=== PATIENT | male | born 1950 | race American Indian/Alaskan Native ===

== ENCOUNTER 2018-10-15 10:32 | Inpatient (IN) | payer MEDICARE ==
[2018-10-15] MEDS ORDERED: TYLENOL PO ONE (11:02)
[2018-10-15] MEDS ORDERED: TYLENOL ONE (11:04)
--- NOTE | 2018-10-15 11:05 | Event Note ---
ED Screening Note Date of service: 10/15/18 Time: 11:03 ED Screening Note: 68 y/o male with no pmh comes for left foot pain times 10 days. This initial assessment/diagnostic orders/clinical plan/treatment(s) is/are subject to change based on patients health status, clinical progression and re- assessment by fellow clinical providers in the ED. Further treatment and workup at subsequent clinical providers discretion. Patient/guardian urged not to elope from the ED as their condition may be serious if not clinically assessed and managed. Initial orders include:
--- NOTE | 2018-10-15 12:05 | Vascular Lab Report ---
DUPLEX DOPPLER LOWER EXTREMITY VEINS, LEFT INDICATION: Left foot pain for 10 days. No pedal pulses TECHNIQUE: Duplex doppler imaging was performed through the veins of the left lower extremity using venous compression and other maneuvers. COMPARISON: No relevant prior imaging study available. FINDINGS: Left Common femoral vein: Negative. Left Superficial femoral vein: Negative. Left Popliteal vein: Negative. Left Calf veins: Negative. Additional findings: None.. IMPRESSION: No sonographic evidence for DVT in the left lower extremity. Signer Name: Alfred Pearl Jr, MD Signed: 10/15/2018 12:00 PM Workstation Name: [id number]
--- NOTE | 2018-10-15 12:46 | Vascular Lab Report ---
DUPLEX DOPPLER LOWER EXTREMITY ARTERIAL, BILATERAL INDICATION: pain and no pedial pulse. Left TECHNIQUE: Arterial duplex examination of the left lower performed using B-mode, color flow and spectral Doppler assessment. FINDINGS: LEFT: Common Femoral Artery: PSV 164 cm/sec. Triphasic waveform. Proximal SFA: PSV 148 cm/sec. Triphasic waveform. Mid SFA: PSV 133 cm/sec. Triphasic waveform. Distal SFA: PSV 99 cm/sec. Triphasic waveform. Popliteal artery: PSV 89 cm/sec. Triphasic waveform. Posterior tibial artery: PSV 67 cm/sec. Triphasic waveform is identified in the proximal posterior t ibial artery which converts to a monophasic waveform in the mid and distal posterior tibial artery. Anterior tibial artery: PSV 34 cm/s. Monophasic waveform. Dorsalis Pedis Artery: PSV 19 cm/sec. Monophasic waveform. Moderate calcific plaque is noted in the left popliteal artery, posterior tibial artery and anterior tibial artery. IMPRESSION: Mild to moderate atherosclerotic disease distal to the knee as described. Doppler Waveform: * Triphasic is normal. * Biphasic is abnormal if clear transition from triphasic signal along vascular tree. * Monophasic is abnormal. Signer Name: Alfred Pearl Jr, MD Signed: 10/15/2018 12:41 PM Workstation Name: [id number]
--- NOTE | 2018-10-15 13:17 | Emergency Department Report ---
ED Lower Extremity HPI - General Chief Complaint: Extremity Injury, Lower Stated Complaint: LFT FOOT PAIN Time Seen by Provider: 10/15/18 13:05 Source: patient Mode of arrival: Ambulatory Limitations: No Limitations - History of Present Illness Initial Comments: Mr. Willis is a 68-year-old male who presents with severe left foot pain for the past 1-2 weeks. He has an ulcer on his left big toe. Pain is exquisitely tender. No recent travel. No history of tobacco abuse. Does not have a primary care physician. Gradual onset of symptoms. Painful to touch. No injury. MD Complaint: other (left foot pain) -: Gradual, week(s) (1-2) Injury: Foot: Left Severity: severe - Related Data Allergies Allergy/AdvReac Type Severity Reaction Status Date / Time No Known Allergies Allergy Unverified 10/15/18 10:33 ED Review of Systems ROS: Stated complaint: LFT FOOT PAIN Other details as noted in HPI Comment: All other systems reviewed and negative Constitutional: denies: fever, malaise Cardiovascular: denies: chest pain Gastrointestinal: denies: abdominal pain ED Past Medical Hx - Past Medical History Previous Medical History?: No - Surgical History Past Surgical History?: No - Social History Smoking Status: Never Smoker Substance Use Type: None ED Physical Exam - General Limitations: No Limitations General appearance: alert, in no apparent distress - Head Head exam: Present: atraumatic, normocephalic - Eye Eye exam: Present: normal appearance - ENT ENT exam: Present: mucous membranes moist - Neck Neck exam: Present: normal inspection, full ROM - Respiratory Respiratory exam: Present: normal lung sounds bilaterally. Absent: respiratory distress, wheezes, rales, rhonchi - Cardiovascular Cardiovascular Exam: Present: regular rate, normal rhythm, normal heart sounds. Absent: systolic murmur, diastolic murmur, rubs, gallop - GI/Abdominal GI/Abdominal exam: Present: soft, normal bowel sounds. Absent: distended, tenderness, guarding, rebound - Rectal Rectal exam: Present: deferred - Extremities Exam Extremities exam: Present: other (unable to palpate pedal pulse left foot, darkened in color 2 cm ulcer medal left toe, lower extremity from calf to foot) - Back Exam Back exam: Present: normal inspection - Neurological Exam Neurological exam: Present: alert, oriented X3 - Psychiatric Psychiatric exam: Present: normal affect, normal mood - Skin Skin exam: Present: warm ED Course Vital Signs 10/15/18 10/15/18 10:53 13:10 Temperature 98.1 F 99.5 F Pulse Rate 101 H 110 H Respiratory 24 14 Rate Blood Pressure 113/86 Blood Pressure 150/88 [Left] O2 Sat by Pulse 99 100 Oximetry ED Lower Extremity MDM - Lab Data Result diagrams: 10/15/18 13:23 10/15/18 13:23 - EKG Data 10/15/18 14:06 EKG obtained 1402 Normal sinus rhythm rate 75 beats a minute normal axis normal intervals positive LVH and nonspecific T-wave abnormality. No significant ST elevation - Radiology Data Radiology results: report reviewed PAD, no DVT - Medical Decision Making Peripheral vascular disease noted with diminished pedal pulses unable to palpate pedal pulse., Duplex Doppler arterial study of the lower extremity showed mild/moderate atherosclerotic disease distal to the left knee, venous duplex negative for DVT. Differential diagnoses includes cellulitis with superinfection with left toe ulcer, will await further evaluation by medicine service before initiating antibiotics I highly appreciate the prompt evaluation and consultation by vascular surgeon Dr. Shipman. He is concerned for pain at rest and subacute limb ischemia. He will take patient to angiography for further evaluation and management. Dr. Sheehan hospitalist agreed to admit the patient. I have reviewed labs which are notable for decreased GFR and leukocytosis. Critical care attestation.: If time is entered above; I have spent that time in minutes in the direct care of this critically ill patient, excluding procedure time. ED Disposition Clinical Impression: Peripheral arterial occlusive disease, CKD (chronic kidney disease) Disposition: OP ADMIT IP TO THIS HOSP Is pt being admited?: Yes Does the pt Need Aspirin: No Condition: Stable
[2018-10-15 13:41] LABS: Basophils # (Auto) 0.1 K/mm3 (0.0-0.1); Basophils % (Auto) 0.5 % (0.0-1.8); Eosinophils % (Auto) 0.1 % (0.0-4.3); Hematocrit 31.7 % (35.5-45.6); Lymphocytes % (Auto) 6.8 % (13.4-35.0); Mean Corpuscular HGB Conc 35 % (32-34); Mean Corpuscular Volume 91 fl (84-94); Monocytes # (Auto) 1.2 K/mm3 (0.0-0.8); Monocytes % (Auto) 8.3 % (0.0-7.3); Platelet Count 335 K/mm3 (140-440); Red Cell Distribution Width 13.4 % (13.2-15.2)
[2018-10-15 13:54] LABS: INR 1.14 (0.87-1.13)
[2018-10-15 13:55] LABS: Partial Thromboplastin Time 29.9 Sec. (24.2-36.6)
[2018-10-15 14:00] LABS: Calcium 9.4 mg/dL (8.4-10.2)
[2018-10-15] MEDS ORDERED: MAXIPIME/NS 1 GM/100 ML 1 GM/100 ML BAG IV ONE (14:34)
[2018-10-15] MEDS ORDERED: VANCOMYCIN/NS 1 GM/250 ML 1 GM/250 ML BAG IV ONE (14:34)
--- NOTE | 2018-10-15 14:38 | Consultation ---
History of Present Illness - Reason for Consult Consult date: 10/15/18 LLE pain - History of Present Illness Mr. Willis is a 68-year-old male who presents with severe left foot pain for the past 1-2 weeks. He has an ulcer on his left big toe. Pain is exquisitely tender. No recent travel. No history of tobacco abuse. Does not have a primary care physician. Gradual onset of symptoms. Painful to touch. No injury. Vascular consulted for abnormal arterial duplex. Triphasic flow to the popliteal with monophasic flow below this area. Patient has pain from the mid calf down to the toe which started about 10 days ago and is associated with an ulcer of the 1st toe. The pain is severe, but is basically stable. The ulcer has slowly worsened. Left motor function and sensory function intact. Pain in the calf improves with hanging foot of the bed, but the foot pain worsens. Past History Past Medical History: No medical history (has not seen a doctor in a long time) Past Surgical History: No surgical history (has not seen a doctor in a long time) Social history: no significant social history Family history: no significant family history Medications and Allergies Allergies Allergy/AdvReac Type Severity Reaction Status Date / Time No Known Allergies Allergy Unverified 10/15/18 10:33 Active Meds: Active Medications Heparin Sodium/Sodium Chloride (Heparin/ 0.45% Nacl-25,000 Unit/500 Ml) 25,000 unit in 500 mls @ 30 mls/hr IV TITR JESUS MANUEL; Protocol Sodium Chloride (Nacl 0.9% 1000 Ml) 1,000 mls @ 125 mls/hr IV DIRECT JESUS MANUEL Cefepime HCl (Maxipime/Ns 1 Gm/100 Ml) 1 gm in 100 mls @ 200 mls/hr IV ONCE ONE; Protocol Stop: 10/15/18 15:03 Vancomycin HCl (Vancomycin/Ns 1 Gm/250 Ml) 1 gm in 250 mls @ 167.007 mls/hr IV ONCE ONE; Protocol Stop: 10/15/18 16:03 Review of Systems All systems: negative (see HPI) Exam - Constitutional Vitals: Temp Pulse Resp BP Pulse Ox 99.5 F 110 H 14 150/88 100 10/15/18 13:10 10/15/18 13:10 10/15/18 13:10 10/15/18 13:10 10/15/18 13:10 General appearance: Present: mild distress (LLE pain) - EENT Eyes: Present: EOM intact ENT: hearing intact - Respiratory Respiratory effort: normal - Extremities Extremities: normal temperature, normal color, abnormal (RLE PT intact, LLE nonpalpable pulses ; LLE edematous and painful to touch from the midcalf down. U lceration of the 1st digit with necrotic center.) - Abdominal General gastrointestinal: Present: soft - Psychiatric Psychiatric: appropriate mood/affect, cooperative Results - Labs CBC & Chem 7: 10/15/18 13:23 10/15/18 13:23 Labs: Abnormal lab results 10/15/18 10/15/18 10/15/18 Range/Units 13:23 13:23 13:27 WBC 14.5 H (4.5-11.0) K/mm3 RBC 3.50 L (3.65-5.03) M/mm3 Hgb 11.0 L (11.8-15.2) gm/dl Hct 31.7 L (35.5-45.6) % MCHC 35 H (32-34) % Lymph % (Auto) 6.8 L (13.4-35.0) % [place] % (Auto) 8.3 H (0.0-7.3) % Lymph # 1.0 L (1.2-5.4) K/mm3 [place] # 1.2 H (0.0-0.8) K/mm3 Seg Neutrophils % 84.3 H (40.0-70.0) % Seg Neutrophils # 12.3 H (1.8-7.7) K/mm3 INR 1.14 H (0.87-1.13) BUN 38 H (9-20) mg/dL Creatinine 1.8 H (0.8-1.5) mg/dL - Imaging and Cardiology Venous US: report reviewed, image reviewed Assessment and Plan 68 year old male who presents with severe left leg pain, intact motor and sensory function, and 1st digit ulceration with necrotic center with nonpalpable pulses and monophasic flow below the popliteal artery. Equivocal rest pain due t o improvement in the calf pain but worsening foot pain. There appears to be some component of rest pain with underling PVD. Creatinine came back elevated at 1.8. Given that the findings have been relatively stable for 10 days, I recommend IV hydration with angiography and revascularization afterwards. 1st toe ulceration/eschar appears dry, but the foot and calf are very tender and may have a component of infection. Recommend broad spectrum antibiotics, and x rays to exclude gas. May need MRI performed with gadolinium to exclude foot/calf abscess. Recommend ID consult and wound care consult with surgical consult for debridement. Debridement should occur after revascularization. Revascularization will occur after creatinine improves or does not change after IV hydration (baseline CKD).
[2018-10-15 14:39] LABS: INR 1.16 (0.87-1.13)
[2018-10-15 14:40] LABS: Partial Thromboplastin Time 33.1 Sec. (24.2-36.6)
[2018-10-15 14:44] LABS: Hematocrit 31.8 % (35.5-45.6); Hemoglobin 10.4 gm/dl (11.8-15.2)
[2018-10-15] MEDS ORDERED: NACL 0.9% 1000 ML 1,000 ML IV SCH (15:00)
--- NOTE | 2018-10-15 15:35 | XRay Report ---
Left tibia and fibula, 2 views INDICATION: cellulitis. COMPARISON: None. IMPRESSION: No acute osseous or soft tissue abnormality. No significant DJD. Left ankle, 3 views INDICATION: cellulitis. COMPARISON: None. IMPRESSION: No osseous abnormality is identified. No significant DJD. There is mild diffuse soft ti ssue swelling. No soft tissue gas. Left foot, 3 views INDICATION: cellulitis. COMPARISON: None. IMPRESSION: No acute osseous or soft tissue abnormality. No significant DJD. Signer Name: Alfred Pearl Jr, MD Signed: 10/15/2018 3:30 PM Workstation Name: [id number]
[2018-10-15] MEDS ORDERED: VANCOMYCIN 2,000 MG in NACL 0.9% 500 ML 500 ML IV ONE (15:50)
[2018-10-15] MEDS: HEPARIN/ 0.45% NACL-25,000 UNIT/500 ML 25,000 UNIT/500 ML BAG IV SCH (18:12)
[2018-10-15] MEDS ORDERED: ZOFRAN IV PRN (21:46)
[2018-10-15] MEDS ORDERED: TYLENOL PO PRN (21:46)
[2018-10-15] MEDS ORDERED: SODIUM CHLORIDE FLUSH SYRINGE 10 ML IV PRN (21:46)
[2018-10-15] MEDS ORDERED: VANCOMYCIN PHARMACY TO DOSE IV SCH (22:00)
[2018-10-15] MEDS: PEPCID PO SCH (22:37)
[2018-10-15] MEDS: SODIUM CHLORIDE FLUSH SYRINGE 10 ML IV SCH (22:40)
[2018-10-16] MEDS ORDERED: APRESOLINE IV PRN ×2 (00:38→09:00)
[2018-10-16] MEDS: UNASYN/NS 3 GM/100 ML 3 GM/100 ML BAG IV SCH ×4 (02:20→23:32)
[2018-10-16 03:44] LABS: Basophils # (Auto) 0.1 K/mm3 (0.0-0.1); Basophils % (Auto) 0.8 % (0.0-1.8); Eosinophils % (Auto) 0.2 % (0.0-4.3); Hematocrit 31.4 % (35.5-45.6); Hemoglobin 10.4 gm/dl (11.8-15.2); Lymphocytes # (Auto) 1.5 K/mm3 (1.2-5.4); Lymphocytes % (Auto) 13.2 % (13.4-35.0); Mean Corpuscular HGB Conc 33 % (32-34); Mean Corpuscular Volume 90 fl (84-94); Monocytes % (Auto) 9.1 % (0.0-7.3); Platelet Count 332 K/mm3 (140-440); Red Blood Count 3.49 M/mm3 (3.65-5.03); Red Cell Distribution Width 13.7 % (13.2-15.2)
[2018-10-16 04:14] LABS: Alanine Aminotransferase 16 units/L (7-56); Albumin 3.4 g/dL (3.9-5); BUN/Creatinine Ratio 22; Blood Urea Nitrogen 31 mg/dL (9-20); Calcium 8.8 mg/dL (8.4-10.2); Hemolysis Index 5
--- NOTE | 2018-10-16 06:24 | Event Note ---
Date: 10/15/18 See H/p in reports PAD LLE cellulitis HTN
[2018-10-16] MEDS: DILAUDID IV PRN ×2 (06:33→19:11)
--- NOTE | 2018-10-16 06:58 | History and Physical Report ---
CHIEF COMPLAINT: Left foot pain and discoloration for the past 1-2 weeks. HISTORY OF PRESENT ILLNESS: A 68-year-old male with no significant past medical history, comes in for severe left foot pain and discoloration of the left lower extremity from mid calf region to the foot for the past 2 weeks. Extremely painful. Painful at rest also. Painful to touch. No fever or chills. The patient also has an ulcer on the left big toe, which is very tender. No drainage. PAST MEDICAL HISTORY: None. SOCIAL HISTORY: Smoked about 40 years ago. PAST SURGICAL HISTORY: None. FAMILY HISTORY: Hypertension. REVIEW OF SYSTEMS: Significant for left leg pain even on minimal walking and at rest. Also, left great toe ulcer. Pain is about 10 on a scale of 1-10. Otherwise, review of systems negative. PHYSICAL EXAMINATION: GENERAL: Elderly male, cooperative during examination. VITAL SIGNS: Blood pressure is 175/90, 188/92, 193/92. Pulse is 101, temperature is 98.1, respirations are 24, sats are 99%. HEENT: Unremarkable. Pupils equal and reactive. NECK: Supple, no lymphadenopathy, no thyromegaly. LUNGS: Clear to auscultation and percussion. Good air entry. CARDIOVASCULAR: S1, S2 heard. No gallop, no murmur, no rub. Apical impulse in left fifth intercostal space and midclavicular line. ABDOMEN: Soft and benign. No hepatosplenomegaly. No guarding, no rigidity. Hernial orifices are normal. EXTREMITIES: Left lower extremity discoloration present from mid calf to the foot. Peripheral pulses are poorly felt. Ulcer on the left toe 1 cm x 2 cm with a depth of 0.5 cm. No drainage. Warm to touch. Pain is tender to touch. CENTRAL NERVOUS SYSTEM: Normal. LABORATORY DATA: Significant for white count of 14,500, H and H is 10.4 and 31.8, platelet count is 350,000. INR is 1.16, BUN and creatinine is 38 and 1.8. A1c is 5.5, albumin is 3.4. Venous duplex scan shows no evidence for DVT in the left lower extremity. Arterial duplex scan left lower extremity shows mild to moderate atherosclerotic disease distal to the knee, monophasic waveforms in anterior tibial artery and dorsalis pedis artery. Also, monophasic waveform in the mid and distal posterior tibial artery. DIAGNOSTIC DATA: EKG shows normal sinus rhythm, heart rate of 78 per minute, LVH criteria present. Tib-fib x-ray was normal. ASSESSMENT AND PLAN: 1. Left lower extremity cellulitis. The patient initiated on IV Unasyn and IV vancomycin. 2. Severe peripheral arterial disease and left lower extremity. The patient initiated on heparin drip. Dr. Shipman, IR consulted. 3. Hypertension. The patient initiated on antihypertensives. The patient does not have a history of hypertension before. 4. Acute kidney injury. IV fluids for now. 5. Malnutrition, mild. Dietary supplements 6. Anemia. Anemia workup. 7. Systemic inflammatory response syndrome in view of high white count of 14,500 and left lower extremity cellulitis. 8. Deep venous thrombosis prophylaxis. The patient is already on heparin drip and gastrointestinal prophylaxis initiated. In summary, the patient has severe peripheral arterial disease with left toe ulcer, acute kidney injury, uncontrolled hypertension. JOB# [id number] ADRIANA/CINTHYA [place]
[2018-10-16 07:35] LABS: % Iron Saturation 23.12 %
--- NOTE | 2018-10-16 08:28 | Progress Note ---
Assessment and Plan Assessment and plan: Patient is a 68-year-old male with past medical history of hypertension [not treated] who presents to the hospital complaining of severe left foot pain with discoloration has been ongoing for 2 weeks around the left hallux and painful to touch. Patient did not demonstrate any fever at home. Imaging studies including Foot, Tibia and ankle xray reveal No acute osseous or soft tissue abnormality. Patient also has a Duplex scan of the lower extremity artery revealed abnormal arterial duplex. Triphasic flow to the popliteal and monophasic flow below this area. Vascular was consulted to assist with management of the patient due to severe PAD while patient was started on empiric anticoagulation drip with heparin. Patient did have a remote tobacco history but quit 40 years ago and has not been to Dr. last 15+ years Left Foot MRI. R/O OSTEOM LLE nonpalpable pulses ; LLE edematous and painful to touch from the midcalf down. Ulceration of the 1st digit with necrotic center.) LLE ATRIAL DUPLEX IMPRESSION: Mild to moderate atherosclerotic disease distal to the knee as described. XRAY LEFT FOOT: IMPRESSION: No acute osseous or soft tissue abnormality. No significant DJD. 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 PARAMNESIA LEFT FOOT SECONDARY TO SEVERE PVD Plan: Continue supportive care ID, Gen Surgery, nephrology and vascular consult noted No clear evidence of systemic infection Continue heparin drip Revascularization planned for today MRI foot pending Renfuction improved with hydration Counselling on BP management discussed in detail for over 15mins, patient verbalized understanding and risk of non complaint. will look for $4 list meds if any on discharge. Wound care consult noted. History Interval history: Patient seen and examined this morning in no acute distress reports some improvement in symptoms. But the patient has had long-standing hypertension but has not followed up with any doctor for medications due to lack of shortness. This morning still with some pain to the left large toe but much improved compared to admission now rates a 3/10 in intensity. Hospitalist Physical - Physical exam Narrative exam: VITAL SIGNS: Reviewed. GENERAL: The patient appears normally developed, Vital signs as documented. HEAD: No signs of head trauma. EYES: Pupils are equal. Extraocular motions intact. EARS: Hearing grossly intact. MOUTH: Oropharynx is normal. NECK: No adenopathy, no JVD. CHEST: Chest with clear breath sounds bilaterally. No wheezes, rales, or rhonchi. CARDIAC: Regular rate and rhythm. S1 and S2, without murmurs, gallops, or rubs. VASCULAR: No Edema. Peripheral pulses normal on the right, LLE WITH LLE n onpalpable pulses ; LLE edematous and painful to touch from the midcalf down. Ulceration of the 1st digit with necrotic center. ABDOMEN: Soft, non tender and non distended. No rebound or guarding, and no masses palpated. Bowel Sounds normal. MUSCULOSKELETAL: Good range of motion of all major joints expected as noted. Extremities without clubbing, cyanosis or edema.LL EX edematous and painful to touch from the midcalf down. Ulceration of the 1st digit with necrotic center NEUROLOGIC EXAM: Alert and oriented x 3 No focal sensory or strength deficits. Speech normal. Follows commands. PSYCHIATRIC: Mood normal. SKIN: Left Large hallux lateral aspect of fluid with ulceration. Warm to touch. Mild erythema. Detail exam as documented in skin assessment - Constitutional Vitals: Temp Pulse Resp BP Pulse Ox 98.7 F 73 18 170/90 98 10/15/18 21:56 10/16/18 02:20 10/15/18 21:56 10/16/18 04:00 10/15/18 21:56 General appearance: Present: mild distress (LLE pain) Results - Labs CBC & Chem 7: 10/16/18 03:31 10/16/18 03:31 Labs: Laboratory Last Values WBC 11.2 K/mm3 (4.5-11.0) H 10/16/18 03:31 RBC 3.49 M/mm3 (3.65-5.03) L 10/16/18 03:31 Hgb 10.4 gm/dl (11.8-15.2) L 10/16/18 03:31 Hct 31.4 % (35.5-45.6) L 10/16/18 03:31 MCV 90 fl (84-94) 10/16/18 03:31 MCH 30 pg (28-32) 10/16/18 03:31 MCHC 33 % (32-34) 10/16/18 03:31 RDW 13.7 % (13.2-15.2) 10/16/18 03:31 Plt Count 332 K/mm3 (140-440) 10/16/18 03:31 Lymph % (Auto) 13.2 % (13.4-35.0) L 10/16/18 03:31 [place] % (Auto) 9.1 % (0.0-7.3) H 10/16/18 03:31 Eos % (Auto) 0.2 % (0.0-4.3) 10/16/18 03:31 Baso % (Auto) 0.8 % (0.0-1.8) 10/16/18 03:31 Lymph # 1.5 K/mm3 (1.2-5.4) 10/16/18 03:31 [place] # 1.0 K/mm3 (0.0-0.8) H 10/16/18 03:31 Eos # 0.0 K/mm3 (0.0-0.4) 10/16/18 03:31 Baso # 0.1 K/mm3 (0.0-0.1) 10/16/18 03:31 Seg Neutrophils % 76.7 % (40.0-70.0) H 10/16/18 03:31 Seg Neutrophils # 8.6 K/mm3 (1.8-7.7) H 10/16/18 03:31 PT 14.5 Sec. (12.2-14.9) 10/15/18 14:19 INR 1.16 (0.87-1.13) H 10/15/18 14:19 APTT 33.1 Sec. (24.2-36.6) 10/15/18 14:19 Heparin Anti-Xa Level 0.34 U.I./ml (0.3-0.7) 10/16/18 03:31 Sodium 140 mmol/L (137-145) 10/16/18 03:31 Potassium 4.3 mmol/L (3.6-5.0) 10/16/18 03:31 Chloride 106.2 mmol/L (98-107) 10/16/18 03:31 Carbon Dioxide 19 mmol/L (22-30) L 10/16/18 03:31 19 mmol/L 10/16/18 03:31 BUN 31 mg/dL (9-20) H 10/16/18 03:31 1.4 mg/dL (0.8-1.5) 10/16/18 03:31 Estimated GFR > 60 ml/min 10/16/18 03:31 22 % 10/16/18 03:31 Glucose 78 mg/dL (75-100) 10/16/18 03:31 5.5 % (4-6) 10/16/18 03:31 Calcium 8.8 mg/dL (8.4-10.2) 10/16/18 03:31 Iron 40 ug/dL (49-181) L 10/16/18 06:42 TIBC 173 mcg/dL (250-450) L 10/16/18 06:42 % Saturation 23.12 % 10/16/18 06:42 152 mg/dl (180-329) L 10/16/18 06:42 0.60 mg/dL (0.1-1.2) 10/16/18 03:31 AST 28 units/L (5-40) 10/16/18 03:31 ALT 16 units/L (7-56) 10/16/18 03:31 76 units/L (35-129) 10/16/18 03:31 6.5 g/dL (6.3-8.2) 10/16/18 03:31 3.4 g/dL (3.9-5) L 10/16/18 03:31 1.1 % 10/16/18 03:31 Active Medications - Current Medications Current Medications: Generic Name Dose Route Start Last Admin Trade Name Freq PRN Reason Stop Dose Admin Acetaminophen 650 mg 10/15/18 21:46 Tylenol PO Q4H PRN Pain MILD(1-3)/Fever >100.5/LAIRD Famotidine 20 mg 10/15/18 22:00 10/15/18 22:37 Pepcid PO 20 mg BID JESUS MANUEL Administration Hydralazine HCl 5 mg 10/16/18 00:38 10/16/18 02:20 Apresoline IV 5 mg Q6HR PRN Administration Blood Pressure Hydromorphone HCl 1 mg 10/15/18 21:46 10/16/18 06:33 Dilaudid IV 1 mg Q3H PRN Administration Pain , Severe (7-10) Heparin Sodium/Sodium Chloride 25,000 unit in 500 mls @ 30 mls/hr 10/15/18 15:00 10/16/18 05:14 Heparin/ 0.45% Nacl-25,000 Unit/500 Ml IV 1,500 units/hr TITR JESUS MANUEL 30 mls/hr Titration Protocol 1,500 UNITS/HR Ampicillin Sodium/Sulbactam Sodium 3 gm in 100 mls @ 100 mls/hr 10/16/18 00:00 10/16/18 06:38 Unasyn/Ns 3 Gm/100 Ml IV 100 mls/hr Q6HR JESUS MANUEL Administration Protocol Vancomycin HCl 1,500 mg/ 530 mls @ 333.333 mls/hr 10/16/18 17:00 Sodium Chloride IV Q24H JESUS MANUEL Sodium Chloride 1,000 mls @ 75 mls/hr 10/16/18 07:00 Nacl 0.9% 1000 Ml IV DIRECT JESUS MANUEL Ondansetron HCl 4 mg 10/15/18 21:46 Zofran IV Q8H PRN Nausea And Vomiting Sodium Chloride 10 ml 10/15/18 22:00 10/15/18 22:40 Sodium Chloride Flush Syringe 10 Ml IV 10 ml BID JESUS MANUEL Administration Sodium Chloride 10 ml 10/15/18 21:46 Sodium Chloride Flush Syringe 10 Ml IV PRN PRN LINE FLUSH
[2018-10-16] MEDS: SODIUM CHLORIDE FLUSH SYRINGE 10 ML IV SCH ×2 (09:05→22:28)
[2018-10-16] MEDS: PEPCID PO SCH ×2 (09:05→22:27)
--- NOTE | 2018-10-16 10:37 | Event Note ---
Date: 10/16/18 Patient started on heparin gtt and iv fluids. His creatinine and GFR have improved, likely close to baseline. His left foot pain has improved. Claf and foot are tender wit palpation however rest pain has improved, suggestive of an acute component with likely in situ thrombosis. Will plan for angiogram with intervention today. Discussed risk and benefits including the risk of bleeding and the possible need for fasciotomy with reperfusion syndrome.
--- NOTE | 2018-10-16 10:44 | Consultation ---
History of Present Illness - Reason for Consult Consult date: 10/16/18 Left lower extremity cellulitis Requesting physician: VERO STEELE - History of Present Illness This patient is a 68-year old man, with no significant past medical history who presents to the ED on 10/15/18 with severe left foot pain for the past 1-2 weeks. He reports an ulcer to his left big toe. On admission WBC 14.5, Creatinine 1.8, Temperature 98.1, HR 110. . Duplex scan of the lower extremity artery revealed abnormal arterial duplex. Triphasic flow to the popliteal and monophasic flow below this area. Foot, Tibia and ankle xray reveal No acute osseous or soft tissue abnormality. 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 He states that he has had excruciating left calf and toe pain, getting progressively worse for the past 10 days. He also reports numbness in both feet, left more than the right. He has not been to a doctor in 15 plus years, and reports never being diagnosed with diabetes or hypertension. He denies tobacco, alcohol and substance abuse. Review of Systems: General: no fever, chills, nightsweats, unintentional weight change, or change in appetite Cutaneous: no rash, pruritus Head: no headaches or injury Eyes: no changes in vision, eye pain, double vision Ears: no ear pain, ear discharge, ringing or hearing loss Nose: no nose bleeding, stuffiness Mouth & throat: no bleeding gums, no horseness, no dental problems, or swollen glands Neck: no pain, node enlargement/lumps, tyroid enlargement or tenderness Respiratory: no cough, wheezing, sputum, hemoptysis, pleuritic chest pain Cardiovascular: no chest pain, leg edema, cyanosis, FRANCO, orthopnea Musculoskeletal: Left great toe ulceration and numbness. Left calf and leg pain. Right foot numbness, Blister right great toe. Gastrointestinal: no nausea, vomiting, hematemesis, diarrhea, constipation, melena, bright red blood in stools, fecal incontinence, jaundice Genitourinary/Reproductive: no frequent urination, no dysuria, hematuria, incontinence Neurogical: no seizures, no headaches, no weakness, no paresthesias, no loss of speech or vision; no memory loss, no vertigo, no tremors, no numbness Psychiatric: stable mood; no excessive anxiety, sadness or moodiness Past History Past Medical History: No medical history (has not seen a doctor in a long time) Past Surgical History: No surgical history (has not seen a doctor in a long time) Social history: no significant social history Family history: no significant family history Medications and Allergies Allergies Allergy/AdvReac Type Severity Reaction Status Date / Time No Known Allergies Allergy Unverified 10/15/18 10:33 Home Medications Medication Instructions Recorded Confirmed Last Taken Type No Known Home Medications [No 10/15/18 10/15/18 Unknown History Reported Home Medications] Active Meds: Active Medications Acetaminophen (Tylenol) 650 mg PO Q4H PRN PRN Reason: Pain MILD(1-3)/Fever >100.5/LAIRD Famotidine (Pepcid) 20 mg PO BID [facility] Last Admin: 10/16/18 09:05 Dose: 20 mg Documented by: Hydralazine HCl (Apresoline) 10 mg IV Q6H PRN PRN Reason: Blood Pressure Hydromorphone HCl (Dilaudid) 1 mg IV Q3H PRN PRN Reason: Pain , Severe (7-10) Last Admin: 10/16/18 06:33 Dose: 1 mg Documented by: Heparin Sodium/Sodium Chloride (Heparin/ 0.45% Nacl-25,000 Unit/500 Ml) 25,000 unit in 500 mls @ 30 mls/hr IV TITR [facility]; Protocol Last Titration: 10/16/18 05:14 Dose: 1,500 units/hr, 30 mls/hr Documented by: Ampicillin Sodium/Sulbactam Sodium (Unasyn/Ns 3 Gm/100 Ml) 3 gm in 100 mls @ 100 mls/hr IV Q6HR [facility]; Protocol Last Admin: 10/16/18 06:38 Dose: 100 mls/hr Documented by: Vancomycin HCl 1,500 mg/ (Sodium Chloride) 530 mls @ 333.333 mls/hr IV Q18H [facility] Sodium Chloride (Nacl 0.9% 1000 Ml) 1,000 mls @ 75 mls/hr IV DIRECT [facility] Ondansetron HCl (Zofran) 4 mg IV Q8H PRN PRN Reason: Nausea And Vomiting Sodium Chloride (Sodium Chloride Flush Syringe 10 Ml) 10 ml IV BID [facility] Last Admin: 10/16/18 09:05 Dose: 10 ml Documented by: Sodium Chloride (Sodium Chloride Flush Syringe 10 Ml) 10 ml IV PRN PRN PRN Reason: LINE FLUSH Physical Examination - Physical Exam Narrative exam: Constitutional: Alert, cooperative. Left leg pain. Head, Ears, Nose: Normocephalic, atraumatic. External ears, nose normal Eyes: Conjunctivae/corneas clear. No icterus. No ptosis. Neck: Supple, no meningeal signs Oral: dentition good. No thrush. mucous membranes moist Cardiovascular: S1, S2 normal. Respiratory: Good air entry, clear to auscultation bilaterally GI: Soft, non-tender; bowel sounds normal. No peritoneal signs Musculoskeletal: Claudication left leg. Left great toe ulceration with Escar. Right great toe blister. Right foot numbness. Skin: same as above Hem/Lymphatic: No palpable cervical or supraclavicular nodes. No lymphangitis Psych: Mood ok. Affect normal Neurological: Awake, alert, oriented. - Constitutional Vitals: Vital Signs Temp Pulse Resp BP Pulse Ox 98.7 F 70 18 155/75 98 10/15/18 21:56 10/16/18 09:06 10/15/18 21:56 10/16/18 09:06 10/16/18 10:05 Temperature -Last 24 Hours Temperature 98.7 F Temperature 99.1 F Temperature 99.5 F Temperature 98.1 F Results - Labs CBC & Chem 7: 10/16/18 03:31 10/16/18 03:31 Labs: Abnormal lab results 10/15/18 10/15/18 10/15/18 Range/Units 13:23 13:23 13:27 WBC 14.5 H (4.5-11.0) K/mm3 RBC 3.50 L (3.65-5.03) M/mm3 Hgb 11.0 L (11.8-15.2) gm/dl Hct 31.7 L (35.5-45.6) % MCHC 35 H (32-34) % Lymph % (Auto) 6.8 L (13.4-35.0) % [place] % (Auto) 8.3 H (0.0-7.3) % Lymph # 1.0 L (1.2-5.4) K/mm3 [place] # 1.2 H (0.0-0.8) K/mm3 Seg Neutrophils % 84.3 H (40.0-70.0) % Seg Neutrophils # 12.3 H (1.8-7.7) K/mm3 INR 1.14 H (0.87-1.13) Carbon Dioxide (22-30) mmol/L BUN 38 H (9-20) mg/dL Creatinine 1.8 H (0.8-1.5) mg/dL Iron (49-181) ug/dL TIBC (250-450) mcg/dL Transferrin (180-329) mg/dl Albumin (3.9-5) g/dL 10/15/18 10/15/18 10/16/18 Range/Units 14:19 14:19 03:31 WBC 11.2 H (4.5-11.0) K/mm3 RBC 3.49 L (3.65-5.03) M/mm3 Hgb 10.4 L 10.4 L (11.8-15.2) gm/dl Hct 31.8 L 31.4 L (35.5-45.6) % MCHC (32-34) % Lymph % (Auto) 13.2 L (13.4-35.0) % [place] % (Auto) 9.1 H (0.0-7.3) % Lymph # (1.2-5.4) K/mm3 [place] # 1.0 H (0.0-0.8) K/mm3 Seg Neutrophils % 76.7 H (40.0-70.0) % Seg Neutrophils # 8.6 H (1.8-7.7) K/mm3 INR 1.16 H (0.87-1.13) Carbon Dioxide (22-30) mmol/L BUN (9-20) mg/dL Creatinine (0.8-1.5) mg/dL Iron (49-181) ug/dL TIBC (250-450) mcg/dL Transferrin (180-329) mg/dl Albumin (3.9-5) g/dL 10/16/18 10/16/18 Range/Units 03:31 06:42 WBC (4.5-11.0) K/mm3 RBC (3.65-5.03) M/mm3 Hgb (11.8-15.2) gm/dl Hct (35.5-45.6) % MCHC (32-34) % Lymph % (Auto) (13.4-35.0) % [place] % (Auto) (0.0-7.3) % Lymph # (1.2-5.4) K/mm3 [place] # (0.0-0.8) K/mm3 Seg Neutrophils % (40.0-70.0) % Seg Neutrophils # (1.8-7.7) K/mm3 INR (0.87-1.13) Carbon Dioxide 19 L (22-30) mmol/L BUN 31 H (9-20) mg/dL Creatinine (0.8-1.5) mg/dL Iron 40 L (49-181) ug/dL TIBC 173 L (250-450) mcg/dL Transferrin 152 L (180-329) mg/dl Albumin 3.4 L (3.9-5) g/dL Assessment and Plan Cultures: No blood cultures drawn A/P: 68-year old man, with no significant past medical history who presents to the ED on 10/15/18 with severe left foot pain for the past 1-2 weeks. He reports an ulcer to his left great toe. Duplex scan of the lower extremity artery revealed abnormal atrerial duplex. Triphasic flow to the popliteal and monophasic flow below this area. Foot, Tibia and ankle xray reveal No acute osseous or soft tissue abnormality. 1.Leukocytosis on admission Etiology most likely left toe cellulitis vs ischemia. No fevers. Blood cultures not drawn. Currently being treated with Unasyn and Vancomycin. 2. Left Toe Cellulitis: Left leg claudication. Left great toe ulceration with eschar. Duplex scan of lower extremity artery revealed abnormal arterial duplex. Scheduled for revascularzation today. Dr. Amanda following. 3. Right Foot: Numbness: Blister on right great toe. Recommendations: Continue Vancomycin and Unasyn for now Wound care consult placed- Dr. Connelly following [facility] M: [phone] O:[phone]
--- NOTE | 2018-10-16 12:01 | Consultation ---
History of Present Illness Consult date: 10/16/18 Chief complaint: foot ulcer - History of present illness History of present illness: 68 yo M with no PMHx presented to ER with pain in left foot and calf that started 1 week ago. Pain is severe. It is improved with elevation of legs. He states he has never had this issue before. Denies trauma to the foot. Past History Past Medical History: No medical history (has not seen a doctor in a long time) Past Surgical History: No surgical history (has not seen a doctor in a long time) Social history: no significant social history Family history: no significant family history Medications and Allergies Allergies Allergy/AdvReac Type Severity Reaction Status Date / Time No Known Allergies Allergy Unverified 10/15/18 10:33 Home Medications Medication Instructions Recorded Confirmed Last Taken Type No Known Home Medications [No 10/15/18 10/15/18 Unknown History Reported Home Medications] Active Meds: Active Medications Acetaminophen (Tylenol) 650 mg PO Q4H PRN PRN Reason: Pain MILD(1-3)/Fever >100.5/LAIRD Famotidine (Pepcid) 20 mg PO BID [facility] Last Admin: 10/16/18 09:05 Dose: 20 mg Documented by: Hydralazine HCl (Apresoline) 10 mg IV Q6H PRN PRN Reason: Blood Pressure Hydromorphone HCl (Dilaudid) 1 mg IV Q3H PRN PRN Reason: Pain , Severe (7-10) Last Admin: 10/16/18 06:33 Dose: 1 mg Documented by: Heparin Sodium/Sodium Chloride (Heparin/ 0.45% Nacl-25,000 Unit/500 Ml) 25,000 unit in 500 mls @ 30 mls/hr IV TITR [facility]; Protocol Last Titration: 10/16/18 05:14 Dose: 1,500 units/hr, 30 mls/hr Documented by: Ampicillin Sodium/Sulbactam Sodium (Unasyn/Ns 3 Gm/100 Ml) 3 gm in 100 mls @ 100 mls/hr IV Q6HR [facility]; Protocol Last Admin: 10/16/18 11:50 Dose: 100 mls/hr Documented by: Vancomycin HCl 1,500 mg/ (Sodium Chloride) 530 mls @ 333.333 mls/hr IV Q18H [facility] Sodium Chloride (Nacl 0.9% 1000 Ml) 1,000 mls @ 75 mls/hr IV DIRECT [facility] Ondansetron HCl (Zofran) 4 mg IV Q8H PRN PRN Reason: Nausea And Vomiting Sodium Chloride (Sodium Chloride Flush Syringe 10 Ml) 10 ml IV BID [facility] Last Admin: 10/16/18 09:05 Dose: 10 ml Documented by: Sodium Chloride (Sodium Chloride Flush Syringe 10 Ml) 10 ml IV PRN PRN PRN Reason: LINE FLUSH Review of Systems All systems: negative (10 pt ROS performed and negative except for that listed in HPI) Exam Vital Signs Temp Pulse Resp BP Pulse Ox 98.1 F 101 H 24 113/86 99 10/15/18 10:53 10/15/18 10:53 10/15/18 10:53 10/15/18 10:53 10/15/18 10:53 Narrative exam: Gen: AAOx3. NAD ENT: no scleral icterus or conjunctival pallor CV: s1, S2+ Resp; even and unlabored Ext: no edema. B/L lower ext warm. + TTP of calf and foot on Left. No significant erythema. Circular wound to medial aspect of great toe on left - thick black eschar, dry no drainage. Results - Labs 10/16/18 03:31 10/16/18 03:31 Abnormal lab results 10/15/18 10/15/18 10/15/18 Range/Units 13:23 13:23 13:27 WBC 14.5 H (4.5-11.0) K/mm3 RBC 3.50 L (3.65-5.03) M/mm3 Hgb 11.0 L (11.8-15.2) gm/dl Hct 31.7 L (35.5-45.6) % MCHC 35 H (32-34) % Lymph % (Auto) 6.8 L (13.4-35.0) % [place] % (Auto) 8.3 H (0.0-7.3) % Lymph # 1.0 L (1.2-5.4) K/mm3 [place] # 1.2 H (0.0-0.8) K/mm3 Seg Neutrophils % 84.3 H (40.0-70.0) % Seg Neutrophils # 12.3 H (1.8-7.7) K/mm3 INR 1.14 H (0.87-1.13) Carbon Dioxide (22-30) mmol/L BUN 38 H (9-20) mg/dL Creatinine 1.8 H (0.8-1.5) mg/dL Iron (49-181) ug/dL TIBC (250-450) mcg/dL Transferrin (180-329) mg/dl Albumin (3.9-5) g/dL 10/15/18 10/15/18 10/16/18 Range/Units 14:19 14:19 03:31 WBC 11.2 H (4.5-11.0) K/mm3 RBC 3.49 L (3.65-5.03) M/mm3 Hgb 10.4 L 10.4 L (11.8-15.2) gm/dl Hct 31.8 L 31.4 L (35.5-45.6) % MCHC (32-34) % Lymph % (Auto) 13.2 L (13.4-35.0) % [place] % (Auto) 9.1 H (0.0-7.3) % Lymph # (1.2-5.4) K/mm3 [place] # 1.0 H (0.0-0.8) K/mm3 Seg Neutrophils % 76.7 H (40.0-70.0) % Seg Neutrophils # 8.6 H (1.8-7.7) K/mm3 INR 1.16 H (0.87-1.13) Carbon Dioxide (22-30) mmol/L BUN (9-20) mg/dL Creatinine (0.8-1.5) mg/dL Iron (49-181) ug/dL TIBC (250-450) mcg/dL Transferrin (180-329) mg/dl Albumin (3.9-5) g/dL 10/16/18 10/16/18 Range/Units 03:31 06:42 WBC (4.5-11.0) K/mm3 RBC (3.65-5.03) M/mm3 Hgb (11.8-15.2) gm/dl Hct (35.5-45.6) % MCHC (32-34) % Lymph % (Auto) (13.4-35.0) % [place] % (Auto) (0.0-7.3) % Lymph # (1.2-5.4) K/mm3 [place] # (0.0-0.8) K/mm3 Seg Neutrophils % (40.0-70.0) % Seg Neutrophils # (1.8-7.7) K/mm3 INR (0.87-1.13) Carbon Dioxide 19 L (22-30) mmol/L BUN 31 H (9-20) mg/dL Creatinine (0.8-1.5) mg/dL Iron 40 L (49-181) ug/dL TIBC 173 L (250-450) mcg/dL Transferrin 152 L (180-329) mg/dl Albumin 3.4 L (3.9-5) g/dL Diabetes panel 10/15/18 10/16/18 10/16/18 Range/Units 13:23 03:31 03:31 Sodium 138 140 (137-145) mmol/L Potassium 5.0 4.3 (3.6-5.0) mmol/L Chloride 101.5 106.2 (98-107) mmol/L Carbon Dioxide 23 19 L (22-30) mmol/L BUN 38 H 31 H (9-20) mg/dL Creatinine 1.8 H 1.4 (0.8-1.5) mg/dL Glucose 91 78 (75-100) mg/dL Hemoglobin A1c 5.5 (4-6) % Calcium 9.4 8.8 (8.4-10.2) mg/dL AST 28 (5-40) units/L ALT 16 (7-56) units/L Alkaline Phosphatase 76 (35-129) units/L Total Protein 6.5 (6.3-8.2) g/dL Albumin 3.4 L (3.9-5) g/dL Calcium panel 10/15/18 10/16/18 Range/Units 13:23 03:31 Calcium 9.4 8.8 (8.4-10.2) mg/dL Albumin 3.4 L (3.9-5) g/dL Pituitary panel 10/15/18 10/16/18 Range/Units 13:23 03:31 Sodium 138 140 (137-145) mmol/L Potassium 5.0 4.3 (3.6-5.0) mmol/L Chloride 101.5 106.2 (98-107) mmol/L Carbon Dioxide 23 19 L (22-30) mmol/L BUN 38 H 31 H (9-20) mg/dL Creatinine 1.8 H 1.4 (0.8-1.5) mg/dL Glucose 91 78 (75-100) mg/dL Calcium 9.4 8.8 (8.4-10.2) mg/dL Adrenal panel 10/15/18 10/16/18 Range/Units 13:23 03:31 Sodium 138 140 (137-145) mmol/L Potassium 5.0 4.3 (3.6-5.0) mmol/L Chloride 101.5 106.2 (98-107) mmol/L Carbon Dioxide 23 19 L (22-30) mmol/L BUN 38 H 31 H (9-20) mg/dL Creatinine 1.8 H 1.4 (0.8-1.5) mg/dL Glucose 91 78 (75-100) mg/dL Calcium 9.4 8.8 (8.4-10.2) mg/dL Total Bilirubin 0.60 (0.1-1.2) mg/dL AST 28 (5-40) units/L ALT 16 (7-56) units/L Alkaline Phosphatase 76 (35-129) units/L Total Protein 6.5 (6.3-8.2) g/dL Albumin 3.4 L (3.9-5) g/dL - Imaging Additional studies: arterial duplex LE - report reviewed - mild to mod atherosclerotic disease below knee venous duplex LE - report reviewed - no DVT Assessment and Plan 68 yo M with L great toe wound, PVD Plan: 1. IV abx 2. vascular surgery on board - plan for revascularization this admission 3. on hep gtt 4. prn pain control 5. elevation 6. wound care evaluation and dressing changes per orders 7. No urgent need for debridement. Will apply dressings that will help soften thick dry eschar and patient to follow up in wound care clinic on dc for continuing wound care Thank you, please call with questions
[2018-10-16] MEDS: NACL 0.9% 1000 ML 1,000 ML IV SCH ×2 (13:17→22:34)
[2018-10-16] MEDS: HEPARIN/ 0.45% NACL-25,000 UNIT/500 ML 25,000 UNIT/500 ML BAG IV SCH (13:42)
[2018-10-16] MEDS ORDERED: HEPARIN/NS 5000 UNIT/500ML(CATH LAB) 1,000 ML IR ONE (14:32)
[2018-10-16] MEDS: XYLOCAINE 2% INFILTRATI ONE ×3 (15:04→16:55)
[2018-10-16] MEDS: SUBLIMAZE ONE ×10 (15:04→17:29)
[2018-10-16] MEDS: VERSED ONE ×10 (15:04→17:26)
[2018-10-16] MEDS: HEPARIN 10,000 UNITS/10 ML ONE ×4 (15:24→17:40)
[2018-10-16] MEDS ORDERED: TRIDIL DRIP 50MG/250ML 50 MG/250 ML BOTTLE ONE (15:26)
[2018-10-16] MEDS ORDERED: NACL 0.9% 1000 ML 1,000 ML ONE (15:26)
[2018-10-16] MEDS ORDERED: CALAN ONE (15:27)
[2018-10-16] MEDS ORDERED: BENADRYL ONE (15:55)
[2018-10-16] MEDS ORDERED: APRESOLINE ONE (16:18)
[2018-10-16] MEDS ORDERED: VANCOMYCIN 1,500 MG in NACL 0.9% 500 ML 500 ML IV SCH (18:00)
[2018-10-16] MEDS ORDERED: NITRO-BID 2% TP ONE (18:06)
--- NOTE | 2018-10-16 18:13 | Post Operative Note ---
Date of procedure: 10/16/18 Pre-op diagnosis: PVD with Left First Toe Ulceration Post-op diagnosis: same Procedure: 1. Ultrasound-Guided Access Right Common Femoral Artery 2. Diagnostic Aortogram with Left Lower Extremity Runoff (No Previous Films for Comparison) 3. Atherectomy and Angioplasty of Left Anterior Tibial Artery With 1.25 Solid CSI Diamondback Atherectomy Catheter and 3.0 x 220 [place] Balloon 4. Ultrasound-Guided Access Left Posterior Tibial Artery Retrograde Pedal Access 5. Atherectomy and Angioplasty of Left Posterior Tibial Artery With 1.25 Solid CSI Diamondback Atherectomy Catheter and 3.0 x 220 [place] Balloon 6. Atherectomy and Angioplasty of Left Popliteal Artery With 1.25 Solid CSI Diamondback Atherectomy Catheter and 5 x 150 INPact Drug-Coated Balloon 7. Closure of Right Femoral Arteriotomy with Pro-Porum Closure Device 8. Radiologic Supervision with Interpretation 9. Monitored Moderate Sedation Anesthesia: local, other (monitored moderate sedation) Surgeon: TARYN MALLORY Estimated blood loss: minimal Pathology: none Condition: stable Disposition: floor
--- NOTE | 2018-10-16 18:14 | Operative Report ---
Operative Report Operative Report: Date of Procedure: 10/16/2018 Pre-operative Diagnosis: Peripheral Vascular Disease with Right First Toe Ulceration Post-operative Diagnosis: Same Procedure(s): 1. Ultrasound-Guided Access Right Common Femoral Artery 2. Diagnostic Aortogram with Left Lower Extremity Runoff (No Previous Films for Comparison) 3. Atherectomy and Angioplasty of Left Anterior Tibial Artery With 1.25 Solid CSI Diamondback Atherectomy Catheter and 3.0 x 220 [place] Balloon 4. Ultrasound-Guided Access Left Posterior Tibial Artery Retrograde Pedal Access 5. Atherectomy and Angioplasty of Left Posterior Tibial Artery With 1.25 Solid CSI Diamondback Atherectomy Catheter and 3.0 x 220 [place] Balloon 6. Atherectomy and Angioplasty of Left Popliteal Artery With 1.25 Solid CSI Diamondback Atherectomy Catheter and 5 x 150 INPact Drug-Coated Balloon 7. Closure of Right Femoral Arteriotomy with Pro-Revillo Closure Device 8. Radiologic Supervision with Interpretation 9. Monitored Moderate Sedation Surgeon: Javier Amanda M.D. Railway Track Worker: None Anesthesia: Local and IV Sedation EBL: Minimal Counts: Correct Complications: None Condition: Stable Specimen: None Indication: The patient is a 68-year-old male who presented with complaints of left lower extremity rest pain and an ulceration on his left first toe. He is in need of a diagnostic arteriogram and possible intervention. He initially had acute renal failure however that has resolved with IV fluids. He was given the risk, benefits, and alternative procedures and consented to the procedure. Angiographic Findings: Description of Procedure: []
[2018-10-16] MEDS ORDERED: PERCOCET 5/325 PO PRN (18:17)
[2018-10-16] MEDS ORDERED: PLAVIX PO ONE (19:15)
[2018-10-16] MEDS: PROTONIX PO SCH (22:27)
[2018-10-16] MEDS: FEOSOL PO SCH (22:27)
[2018-10-16] MEDS: HALFPRIN EC PO SCH (22:27)
[2018-10-17 03:07] LABS: BUN/Creatinine Ratio 18; Blood Urea Nitrogen 25 mg/dL (9-20); Calcium 8.3 mg/dL (8.4-10.2); Hemolysis Index 5
[2018-10-17 03:24] LABS: Mean Corpuscular HGB Conc 33 % (32-34); Mean Corpuscular Volume 91 fl (84-94); Mean Platelet Volume 8.9 fl (6-12); Platelet Count 319 K/mm3 (140-440); Red Blood Count 3.31 M/mm3 (3.65-5.03); Red Cell Distribution Width 13.5 % (13.2-15.2)
[2018-10-17] MEDS: UNASYN/NS 3 GM/100 ML 3 GM/100 ML BAG IV SCH ×3 (05:04→12:13)
[2018-10-17] MEDS: NITRO-BID 2% TP SCH ×3 (05:05→14:55)
[2018-10-17] MEDS: FEOSOL PO SCH ×2 (07:43→14:55)
[2018-10-17 07:52] VITALS: BP 159/77
--- NOTE | 2018-10-17 08:58 | Progress Note ---
Assessment and Plan Patient is doing well following his revascularization procedure. He will need to have appropriate wound care set up above in hospital and as an outpatient to allow adequate wound healing. Patient will follow up in our office in 2 weeks. Subjective Date of service: 10/17/18 Principal diagnosis: peripheral vascular disease with rest pain, left leg Interval history: Patient is status post revascularization of his left leg tibial vessels. His l ower leg and foot are warm and well-perfused. He has a minimal mild reperfusion edema. No complaints of pain. Puncture site in his right groin is soft. Objective - Constitutional Vitals: Vital Signs - 12hr 10/16/18 10/17/18 10/17/18 22:00 02:17 07:31 Temperature 99.4 F 98.2 F Pulse Rate 82 72 Pulse Rate [ 82 Right Brachial] Respiratory 18 18 20 Rate Blood Pressure 155/71 159/77 O2 Sat by Pulse 93 93 96 Oximetry General appearance: Present: no acute distress - EENT Eyes: EOM intact ENT: hearing intact - Neck Neck: supple, normal ROM - Respiratory Respiratory effort: normal Extremities: abnormal - Gastrointestinal General gastrointestinal: Present: deferred Rectal Exam: deferred - Genitourinary Male genitourinary: deferred - Psychiatric Psychiatric: appropriate mood/affect, cooperative - Labs CBC & Chem 7: 10/17/18 02:34 10/17/18 02:34 Labs: Abnormal lab results 10/17/18 10/17/18 Range/Units 02:34 02:34 RBC 3.31 L (3.65-5.03) M/mm3 Hgb 10.0 L (11.8-15.2) gm/dl Hct 30.0 L (35.5-45.6) % Sodium 136 L (137-145) mmol/L Carbon Dioxide 21 L (22-30) mmol/L BUN 25 H (9-20) mg/dL Glucose 174 H (75-100) mg/dL Calcium 8.3 L (8.4-10.2) mg/dL Medications & Allergies - Medications Allergies/Adverse Reactions: Allergies No Known Allergies Allergy (Unverified 10/15/18 10:33) Home Medications: Home Medications Medication Instructions Recorded Confirmed Last Taken Type No Known Home Medications [No 10/15/18 10/15/18 Unknown History Reported Home Medications] Active Medications: Generic Name Dose Route Start Last Admin Trade Name Freq PRN Reason Stop Dose Admin Acetaminophen 650 mg 10/15/18 21:46 Tylenol PO Q4H PRN Pain MILD(1-3)/Fever >100.5/LAIRD Aspirin 81 mg 10/16/18 20:00 10/16/18 22:27 Halfprin Ec PO 81 mg QDAY [facility] Administration Clopidogrel Bisulfate 75 mg 10/17/18 10:00 Plavix PO QDAY [facility] Famotidine 20 mg 10/15/18 22:00 10/16/18 22:27 Pepcid PO 20 mg BID [facility] Administration Ferrous Sulfate 325 mg 10/16/18 20:00 10/17/18 07:43 Feosol PO 325 mg TID [facility] Administration Hydralazine HCl 10 mg 10/16/18 09:00 Apresoline IV Q6H PRN Blood Pressure Hydromorphone HCl 1 mg 10/15/18 21:46 10/16/18 19:11 Dilaudid IV 1 mg Q3H PRN Administration Pain , Severe (7-10) Heparin Sodium/Sodium Chloride 25,000 unit in 500 mls @ 30 mls/hr 10/15/18 15:00 10/16/18 13:42 Heparin/ 0.45% Nacl-25,000 Unit/500 Ml IV 1,500 units/hr TITR [facility] 30 mls/hr Administration Protocol 1,500 UNITS/HR Ampicillin Sodium/Sulbactam Sodium 3 gm in 100 mls @ 100 mls/hr 10/16/18 00:00 10/17/18 05:05 Unasyn/Ns 3 Gm/100 Ml IV 100 mls/hr Q6HR [facility] Administration Protocol Sodium Chloride 1,000 mls @ 75 mls/hr 10/16/18 07:00 10/16/18 22:34 Nacl 0.9% 1000 Ml IV 75 mls/hr DIRECT [facility] Administration Vancomycin HCl 1,500 mg/ 530 mls @ 333.333 mls/hr 10/17/18 16:00 Sodium Chloride IV Q18H [facility] Nitroglycerin 0.5 inch 10/17/18 06:00 10/17/18 05:05 Nitro-Bid 2% TP 0.5 inch QIDNTG [facility] Administration Protocol Ondansetron HCl 4 mg 10/15/18 21:46 Zofran IV Q8H PRN Nausea And Vomiting Oxycodone/Acetaminophen 2 tab 10/16/18 18:17 Percocet 5/325 PO Q6H PRN Pain, Moderate (4-6) Pantoprazole Sodium 40 mg 10/16/18 20:00 10/16/18 22:27 Protonix PO 40 mg QDAY [facility] Administration Sodium Chloride 10 ml 10/15/18 22:00 10/16/18 22:28 Sodium Chloride Flush Syringe 10 Ml IV 10 ml BID [facility] Administration Sodium Chloride 10 ml 10/15/18 21:46 Sodium Chloride Flush Syringe 10 Ml IV PRN PRN LINE FLUSH
[2018-10-17] MEDS: HALFPRIN EC PO SCH (09:00)
[2018-10-17] MEDS: PROTONIX PO SCH (09:00)
[2018-10-17] MEDS: PEPCID PO SCH (09:00)
[2018-10-17] MEDS: SODIUM CHLORIDE FLUSH SYRINGE 10 ML IV SCH (09:01)
[2018-10-17] MEDS: HEPARIN/ 0.45% NACL-25,000 UNIT/500 ML 25,000 UNIT/500 ML BAG IV SCH (09:32)
[2018-10-17] MEDS ORDERED: PLAVIX PO SCH (10:00)
--- NOTE | 2018-10-17 10:00 | Discharge Summary ---
<MIRNA CHANDLER - Last Filed: 10/17/18 11:46> Providers - Providers Date of Admission: 10/15/18 19:49 Attending physician: ALMAS ANN MD 10/15/18 13:49 Consult to Physician [CONS] Stat Comment: ALYSSA Consulting Provider: ALEXSANDRA COOPER Physician Instructions: WAS NOTIFIED Reason For Exam: peripheral arterial disease 10/15/18 21:49 Consult to Wound/ET Nurse [CONS] Routine Reason For Exam: wound eval 10/15/18 21:50 Consult to Physician [CONS] Routine Comment: ALYSSA Consulting Provider: ARI UNGER Physician Instructions: CASEY WAS NOTIFIED Reason For Exam: left lower axillary cellulitis 10/15/18 21:52 Consult to Physician [CONS] Routine Comment: ALYSSA Consulting Provider: MIRNA CHANDLER Physician Instructions: WAS NOTIFIED Reason For Exam: left foot ulcer 10/16/18 08:57 Physical Therapy Evaluation and Treat [CONS] Routine Comment: Reason For Exam: Weakness Primary care physician: [facility] MD CODY Hospitalization Condition: Stable Disposition: DC/[place]-06 HOME UNDER HOME [facility] Exam - Constitutional Vitals: Temp Pulse Resp BP Pulse Ox 98.2 F 72 20 159/77 96 10/17/18 07:31 10/17/18 09:00 10/17/18 07:31 10/17/18 07:31 10/17/18 09:00 Plan Additional Instructions: FOLLOW UP IN 1 WEEK AT [facility] - [address] [facility], [address]. [phone] [facility] [Primary Care Provider] - 7 Days ALEXSANDRA DAVIS MD [Staff Physician] - 7 Days FAISAL MCKEON MD [Staff Physician] - 7 Days Prescriptions: Aspirin EC 81 mg PO QDAY #30 tablet Amoxicillin/Potassium Clav [Augmentin 875-125 Tablet] 1 each PO BID #20 tablet Docusate Sodium [Colace] 100 mg PO BID #60 capsule Ferrous Sulfate [Feosol 325 MG tab] 325 mg PO TID #90 tablet amLODIPine [Norvasc] 10 mg PO DAILY #30 tab Clopidogrel [Plavix] 75 mg PO QDAY #30 tablet Pantoprazole [Protonix TAB] 40 mg PO QDAY #30 tablet traMADol [Ultram] 50 mg PO Q6HR PRN #20 tablet PRN Reason: Pain <ALMAS ANN - Last Filed: 10/17/18 14:46> Providers - Providers Date of Admission: 10/15/18 19:49 Attending physician: ALMAS ANN MD 10/15/18 13:49 Consult to Physician [CONS] Stat Comment: ALYSSA Consulting Provider: ALEXSANDRA COOPER Physician Instructions: WAS NOTIFIED Reason For Exam: peripheral arterial disease 10/15/18 21:49 Consult to Wound/ET Nurse [CONS] Routine Reason For Exam: wound eval 10/15/18 21:50 Consult to Physician [CONS] Routine Comment: ALYSSA Consulting Provider: ARI UNGER Physician Instructions: CASEY WAS NOTIFIED Reason For Exam: left lower axillary cellulitis 10/15/18 21:52 Consult to Physician [CONS] Routine Comment: ALYSSA Consulting Provider: MIRNA CHANDLER Physician Instructions: WAS NOTIFIED Reason For Exam: left foot ulcer 10/16/18 08:57 Physical Therapy Evaluation and Treat [CONS] Routine Comment: Reason For Exam: Weakness [facility] Reason for admission: CELLULITIS Hospital course: Patient is a 68-year-old male with past medical history of hypertension [not treated] who presents to the hospital complaining of severe left foot pain with discoloration has been ongoing for 2 weeks around the left hallux and painful to touch. Patient did not demonstrate any fever at home. Imaging studies including Foot, Tibia and ankle xray reveal No acute osseous or soft tissue abnormality. Patient also has a Duplex scan of the lower extremity artery revealed abnormal arterial duplex. Triphasic flow to the popliteal and monophasic flow below this area. Vascular was consulted to assist with management of the patient due to severe PAD while patient was started on empiric anticoagulation drip with heparin. Patient did have a remote tobacco history but quit 40 years ago and has not been to [facility] last 15+ years LLE nonpalpable pulses ; LLE edematous and painful to touch from the mid calf down. Ulceration of the 1st digit with necrotic center. LLE ATRIAL DUPLEX IMPRESSION: Mild to moderate atherosclerotic disease distal to the knee as described. XRAY LEFT FOOT: IMPRESSION: No acute osseous or soft tissue abnormality. No significant DJD. MR left lower ext: negative for osteomylitis Patient was seen by Vascular and also surgery, No surgery recommended at this time. Patient underwent revasculirzation and started on plavix therapy. We also added statin therapy and extensive counselling. Patient is advised to follow with Primary care physician and at the wound care clinic. Case management is assisting. ID consulted and recommended 10 days of Augmentin which is started. Severe PVD s/p Revascularization [place]ELAL[place] SECONDARY TO VASOMOTOR NEPHROPATHY CELLULITIS OF LLE-Large Toe Iron Def Anemia Malignant Hypertension Constipation LEFT LARGE Toe ULCERATION WITH ESCHAR. PARAMNESIA LEFT FOOT SECONDARY TO SEVERE PVD Time spent for discharge: 35 MINS Core Measure Documentation - Palliative Care Palliative Care/ Comfort Measures: Not Applicable - Core Measures Any of the following diagnoses?: none Exam - Physical Exam Narrative exam: VITAL SIGNS: Reviewed. GENERAL: The patient appears normally developed, Vital signs as documented. HEAD: No signs of head trauma. EYES: Pupils are equal. Extraocular motions intact. EARS: Hearing grossly intact. MOUTH: Oropharynx is normal. NECK: No adenopathy, no JVD. CHEST: Chest with clear breath sounds bilaterally. No wheezes, rales, or rhonchi. CARDIAC: Regular rate and rhythm. S1 and S2, without murmurs, gallops, or rubs. VASCULAR: No Edema. Peripheral pulses normal on the right, LLE WITH LLE nonpalpable pulses ; LLE edematous and painful to touch from the midcalf down. Ulceration of the 1st digit DRESSING IN PLACE ABDOMEN: Soft, non tender and non distended. No rebound or guarding, and no masses palpated. Bowel Sounds normal. MUSCULOSKELETAL: Good range of motion of all major joints expected as noted. Extremities without clubbing, cyanosis or edema.LL EX edematous and painful to touch from the midcalf down. Ulceration of the 1st digit with necrotic center NEUROLOGIC EXAM: Alert and oriented x 3 No focal sensory or strength deficits. Speech normal. Follows commands. PSYCHIATRIC: Mood normal. SKIN: Left Large hallux lateral with dressing inplace. Warm to touch. Mild erythema. Detail exam as documented in skin assessment - Constitutional Vitals: Temp Pulse Resp BP Pulse Ox 98.2 F 72 20 159/77 96 10/17/18 07:31 10/17/18 07:31 10/17/18 07:31 10/17/18 07:31 10/17/18 07:31 Plan Activity: advance as tolerated, fall precautions Diet: low fat Wound: per your surgeon's advice, per wound nurse instructions Special Instructions: record daily weights, record daily BP diary, home health RN
--- NOTE | 2018-10-17 10:19 | Progress Note ---
Assessment and Plan Cultures: No blood cultures drawn A/P: 68-year old man, with no significant past medical history who presents to the ED on 10/15/18 with severe left foot pain for the past 1-2 weeks. He reports an ulcer to his left great toe. Duplex scan of the lower extremity artery revealed abnormal atrerial duplex. Triphasic flow to the popliteal and monophasic flow below this area. Foot, Tibia and ankle xray reveal No acute osseous or soft tissue abnormality. 1.Leukocytosis on admission Etiology most likely left toe cellulitis vs ischemia. No fevers. Blood cultures not drawn. Currently being treated with Unasyn and Vancomycin. 2. Left Toe Cellulitis: Left leg claudication. Left great toe ulceration with eschar. Duplex scan of lower extremity artery revealed abnormal arterial duplex. s/p revascularzation 10/17/18, foot and leg now well perfused. MRI showed deep muscular edema. No cellulitus, abscess or osteomylitis. 3.Right Foot: Numbness: Blister on right great toe. Recommendations: Continue Vancomycin and Unasyn for now Anticipate discharge on Augmentin 875mg PO BID for 10 days Continue wound care out patient Follow-up ID clinic in 2 weeks (sent to lap polisher) [facility] M: [phone] O:[phone] Subjective Date of service: 10/17/18 Principal diagnosis: peripheral vascular disease with rest pain, left leg Interval history: Patient seen and examined. Laying in bed. Reports improved left foot and leg discomfort. No fevers Objective - Exam Narrative Exam: Constitutional: Alert, cooperative. No acute distress Head, Ears, Nose: Normocephalic, atraumatic. External ears, nose normal Eyes: Conjunctivae/corneas clear. No icterus. No ptosis. Neck: Supple, no meningeal signs Oral: dentition good. No thrush. mucous membranes moist Cardiovascular: S1, S2 normal. Respiratory: Good air entry, clear to auscultation bilaterally GI: Soft, non-tender; bowel sounds normal. No peritoneal signs Musculoskeletal: Claudication left leg. Left great toe ulceration with Escar. Right great toe blister. Improved Skin: same as above Hem/Lymphatic: No palpable cervical or supraclavicular nodes. No lymphangitis Psych: Mood ok. Affect normal Neurological: Awake, alert, oriented. - Constitutional Vitals: Vital Signs Temp Pulse Resp BP Pulse Ox 98.2 F 72 20 159/77 96 10/17/18 07:31 10/17/18 07:31 10/17/18 07:31 10/17/18 07:31 10/17/18 07:31 Temperature -Last 24 Hours Temperature 98.2 F Temperature 99.4 F Temperature 98.8 F Temperature 98.8 F Temperature 98.9 F - Labs CBC & Chem 7: 10/17/18 02:34 10/17/18 02:34 Labs: Abnormal lab results 10/17/18 10/17/18 Range/Units 02:34 02:34 RBC 3.31 L (3.65-5.03) M/mm3 Hgb 10.0 L (11.8-15.2) gm/dl Hct 30.0 L (35.5-45.6) % Sodium 136 L (137-145) mmol/L Carbon Dioxide 21 L (22-30) mmol/L BUN 25 H (9-20) mg/dL Glucose 174 H (75-100) mg/dL Calcium 8.3 L (8.4-10.2) mg/dL
--- NOTE | 2018-10-17 12:15 | Magnetic Resonance Report ---
MRI left foot with and without contrast HISTORY: left foot, eval for osteomyelitis. TECHNIQUE: 18 mL of MultiHance was given intravenously. COMPARISON: Left foot radiographs from 2 days prior FINDINGS: There is no soft tissue wound, abscess, or obvious bony abnormality to suggest osteomyelit is. There is mild nonspecific deep muscular edema primarily in the midfoot/forefoot. There are mild d egenerative changes in the forefoot. Normal alignment with no acute musculotendinous abnormality. IMPRESSION: Mild nonspecific deep muscular edema but no soft tissue wound, cellulitis, abscess, or o steomyelitis. Signer Name: Kade Mercado MD Signed: 10/17/2018 12:11 PM Workstation Name: [id number]
--- NOTE | 2018-10-17 12:26 | Event Note ---
Date: 10/17/18 Pt being discharged today per 1' service. MRI LLE negative for osteomyelitis. He is s/p revascularization of LLE. Discussed with professor of social work Gale regarding wound care clinic follow up as patient has Medicare Part A listed as insurance without supplement. With only medicare part A he is unable to get outpatient wound care/office services. log chain worker to follow up with patient and if no supplementary insurance, he will need steph application and financial counseling follow up.
[2018-10-17] MEDS ORDERED: VANCOMYCIN 1,500 MG in NACL 0.9% 500 ML 500 ML IV SCH (16:00)
== END 2018-10-17 16:10 | disposition home health service (06) | DRG 270 ==
LOC: ED 10:32 → 2B-ACE 19:49
PROVIDERS: ADMIT Internal Medicine; ATTEND Internal Medicine
PROC: 04CQ3ZZ Extirpation of Matter from Left Anterior Tibial Artery, Percutaneous Approach (ICD-10-PCS; principal; 2018-10-16)
PROC: 047N3Z1 Dilation of Left Popliteal Artery using Drug-Coated Balloon, Percutaneous Approach (ICD-10-PCS; 2018-10-16)
PROC: 04CN3ZZ Extirpation of Matter from Left Popliteal Artery, Percutaneous Approach (ICD-10-PCS; 2018-10-16)
PROC: 04CS3ZZ Extirpation of Matter from Left Posterior Tibial Artery, Percutaneous Approach (ICD-10-PCS; 2018-10-16)
PROC: 047Q3ZZ Dilation of Left Anterior Tibial Artery, Percutaneous Approach (ICD-10-PCS; 2018-10-16)
PROC: 047S3ZZ Dilation of Left Posterior Tibial Artery, Percutaneous Approach (ICD-10-PCS; 2018-10-16)
PROC: B41G1ZZ Fluoroscopy of Left Lower Extremity Arteries using Low Osmolar Contrast (ICD-10-PCS; 2018-10-16)
PROC: B4101ZZ Fluoroscopy of Abdominal Aorta using Low Osmolar Contrast (ICD-10-PCS; 2018-10-16)
DX: I70.245 Atherosclerosis of native arteries of left leg with ulceration of other part of foot (principal); N17.0 Acute kidney failure with tubular necrosis; L03.116 Cellulitis of left lower limb; E44.0 Moderate protein-calorie malnutrition; R65.10 Systemic inflammatory response syndrome (SIRS) of non-infectious origin without acute organ dysfunction; D64.9 Anemia, unspecified; L97.529 Non-pressure chronic ulcer of other part of left foot with unspecified severity; L03.032 Cellulitis of left toe; I12.9 Hypertensive chronic kidney disease with stage 1 through stage 4 chronic kidney disease, or unspecified chronic kidney disease; D50.9 Iron deficiency anemia, unspecified; K59.00 Constipation, unspecified; N18.9 Chronic kidney disease, unspecified; Z82.49 Family history of ischemic heart disease and other diseases of the circulatory system; Z87.891 Personal history of nicotine dependence; Z68.28 Body mass index [BMI] 28.0-28.9, adult
CPT/HCPCS: 36415; 37225; 37229; 37233; 75625; 75710; 76937; 80048; 80053; 83036; 83550; 85014; 85018; 85025; 85027; 85049; 85520; 85610; 85730; 93005; 93010; 96365; 96366; 96368; G0378; A9577; C1724; C1725; C1760; C1769; C1887; C2623; J0295; J0360; J0692; J1170; J1200; J1644; J2250; J3010; J3370; J7030; J7040; Q9967